=== PATIENT | male | born 1950 | race Caucasian/White ===

== ENCOUNTER 2021-01-13 06:25 | Day surgery (SDC) | payer MEDICARE, OTHER ==
[~2021-01-13] VITALS: Ht 177.8 cm; Wt 79.5 kg
[~2021-01-13 06:25] MED LIST: ALEVE220 M1; ASPIRIN EC81 MG PO; FISH OIL 1,0001 EAC1 PO; KEFLEX500 MG PO; NAPROXEN500 MG PO; NORCO 5-325 TA1 EACH PO; PERCOCET 5-3251 EACH PO; RED YEAST RICE600 MG PO; VITAMIN D1000 UNIT PO
--- NOTE | 2021-01-13 08:24 | NUR ---
01/13/21 0824 Ariana Maravilla 0814 PT TO PACU TALKING BUT DROWSEY, DENIES PAIN,
--- NOTE | 2021-01-13 09:44 | NUR ---
PT ALERT, ORIENTED AND SUPPORTED BY HIS ALICIA. PT HERE FOR HIS 10 YEAR SCOPE. PREP WAS DIFFICULT FOR PT, BUT HE MANAGED. ALL QUESTIONS ASKED WERE ANSWERED. ALICIA TO REMAIN UNTIL DC. GAVE BLESSING, OR STAFF IN. WILL FOLLOW
--- NOTE | 2021-01-14 14:44 | OR ---
[facility] [address], [place] [address] Signed DATE OF OPERATION: 01/13/2021 SURGEON: Ramesh Collier MD PREOPERATIVE DIAGNOSIS: Family history of colon cancer (father, last colonoscopy 2011, normal). POSTOPERATIVE DIAGNOSIS: Sigmoid diverticulosis. PROCEDURE: Total colonoscopy to cecum. ANESTHESIA: Intravenous sedation, fentanyl 150 mcg and Versed 6 mg. INDICATION: This 70-year-old white man is a patient Dr. Almonte. He is known to me from the past and undergone colonoscopy in 2012, which was normal. He does have family history of colon cancer in his father, who underwent colon resection. He is symptom-free having no bleeding, diarrhea, or constipation. He is admitted at this time to undergo screening colonoscopy given his family history and despite having no symptoms of the colon. The risks of bleeding, infection, and perforation related to colonoscopy were reviewed with him. He understands and wished to proceed. FINDINGS: Prep was good. Complete colonoscopy was undertaken of the cecum without question. The diverticula of the sigmoid and left colon, which were scattered and few, but did cause some angulation deformity making passage to the sigmoid challenging first. Complete colonoscopy was undertaken without question. There were no signs of polyps, colitis, or other abnormality, however. DESCRIPTION OF PROCEDURE: The patient was brought to the endoscopy suite and placed in lateral decubitus position, given intravenous sedation to the point of slurred speech and nystagmus. Digital rectal examination was normal. The prostate was palpable. I did not feel dominant nodule. An Olympus video colonoscope was passed in the rectum and manipulated into the sigmoid and rectosigmoid. Various maneuvers were required to carefully manipulate through this area, as there were diverticula and some fibrotic changes, but no sign of stricture Electronically Signed By: RAMESH COLLIER MD 01/14/21 1444 PATIENT NAME: CHANDA CASTANEDA OPERATIVE REPORT DATE OF : 48 REPORT #: [id number] PHYSICIAN: RAMESH COLLIER MD PCP: MAIK ALMONTE MD REPORT IS CONFIDENTIAL AND NOT TO BE RELEASED WITHOUT AUTHORIZATION [facility] [address], [place] [address] Signed proper. Once the left colon was entered, colonoscopy was quite a bit easier. The scope was ultimately advanced to the cecum. The ileocecal valve and appendiceal orifice appeared normal. Scope was withdrawn from that point and examination throughout showed no sign of abnormality for polyps or colitis, only diverticula of the left and sigmoid colon. Retroflexed view of the rectum was normal. Scope was removed. The patient was taken to the recovery room in good condition. CONCLUDING DIAGNOSIS: Diverticulosis. PLAN: Recommend high-fiber diet. Recommend repeat in 5 to 7 years given his family history of colon cancer, sooner if symptoms should occur. He will return to the ongoing care of Dr. Almonte. MD CAESAR Landry/AZALIA /[id number] cc: Dr. Almonte Copies: ~ Electronically Signed By: RAMESH COLLIER MD 01/14/21 1444 PATIENT NAME: LEONELCHANDA ORR OPERATIVE REPORT DATE OF : 48 REPORT #: [id number] PHYSICIAN: RAMESH COLLIER MD PCP: MAIK ALMONTE MD REPORT IS CONFIDENTIAL AND NOT TO BE RELEASED WITHOUT AUTHORIZATION
== END 2021-01-13 09:15 | disposition home or self-care (01) ==
LOC: OPS 06:25 → DS 06:25 → OPS 06:45 → DS 08:30 → OPS 09:15
PROVIDERS: ATTEND Surgery
PROC: 0DJD8ZZ Inspection of Lower Intestinal Tract, Via Natural or Artificial Opening Endoscopic (ICD-10-PCS; principal; 2021-01-13 06:45)
DX: Z12.11 Encounter for screening for malignant neoplasm of colon (principal); K57.30 Diverticulosis of large intestine without perforation or abscess without bleeding; R97.20 Elevated prostate specific antigen [PSA]; Z80.0 Family history of malignant neoplasm of digestive organs; Z87.891 Personal history of nicotine dependence
CPT/HCPCS: 99153; G0500; J2250; J3010